=== PATIENT | female | born 1950 | race Two or more races ===

== ENCOUNTER → 2017-11-11 | Emergency (ER) | payer OTHER ==
[~2017-11-11] VITALS: Ht 154.9 cm; Wt 88.9 kg
[~2017-11-11] MED LIST: SYNTHROID50 MCG PO
== END | disposition home or self-care (01) ==
LOC: ER 20:24
DX: H10.89 Other conjunctivitis (principal)

== ENCOUNTER 2018-10-15 10:55 | Outpatient (CLI) | payer OTHER | END 2018-10-15 11:01 | disposition home or self-care (01) | LOC: MAMO-SONO 10:55 | DX: Z12.31 Encounter for screening mammogram for malignant neoplasm of breast (principal); Z87.898 Personal history of other specified conditions; N64.89 Other specified disorders of breast ==

== ENCOUNTER 2018-12-24 13:54 | Outpatient (CLI) | payer OTHER | END 2018-12-24 13:56 | disposition home or self-care (01) | LOC: RAD 13:54 | DX: J45.998 Other asthma (principal) ==

== ENCOUNTER 2019-02-08 07:52 | Outpatient (CLI) | payer OTHER | END 2019-02-08 07:53 | disposition home or self-care (01) | LOC: NUCLEAR 07:52 | DX: I11.9 Hypertensive heart disease without heart failure (principal); I25.10 Atherosclerotic heart disease of native coronary artery without angina pectoris; I82.493 Acute embolism and thrombosis of other specified deep vein of lower extremity, bilateral | CPT/HCPCS: 78452; 93017; 93970; A9500; J0153 ==

== ENCOUNTER → 2020-01-08 | Outpatient (CLI) | payer OTHER | END | disposition home or self-care (01) | LOC: MAMO-SONO 14:26 | PROVIDERS: ATTEND Obstetrics & Gynecology | DX: Z12.31 Encounter for screening mammogram for malignant neoplasm of breast (principal) ==

== ENCOUNTER 2020-03-23 13:13 | Outpatient (CLI) | payer OTHER | END 2020-03-23 13:30 | disposition home or self-care (01) | LOC: NUCLEAR 13:13 | PROVIDERS: ATTEND Obstetrics & Gynecology | DX: M81.8 Other osteoporosis without current pathological fracture (principal); E55.9 Vitamin D deficiency, unspecified ==

== ENCOUNTER 2021-02-18 10:37 | Outpatient (CLI) | payer OTHER | END 2021-02-18 10:38 | disposition home or self-care (01) | LOC: NUCLEAR 10:37 | PROVIDERS: ATTEND Specialist | DX: I87.2 Venous insufficiency (chronic) (peripheral) (principal) ==

== ENCOUNTER 2021-03-31 09:02 | Outpatient (CLI) | payer OTHER | END 2021-03-31 09:08 | disposition home or self-care (01) | LOC: TOM 09:02 | PROVIDERS: ATTEND Internal Medicine Gastroenterology | DX: K76.0 Fatty (change of) liver, not elsewhere classified (principal); R10.10 Upper abdominal pain, unspecified | CPT/HCPCS: 74177; Q9965 ==

== ENCOUNTER 2021-04-14 08:00 | Outpatient (CLI) | payer OTHER | END 2021-04-14 08:30 | disposition home or self-care (01) | LOC: PPH VACUNA 08:00 | PROVIDERS: ATTEND Emergency Medicine Pediatric Emergency Medicine | DX: Z23 Encounter for immunization (principal) ==

== ENCOUNTER 2021-09-29 09:40 | Outpatient (CLI) | payer OTHER | END 2021-09-29 09:53 | disposition home or self-care (01) | LOC: MAMO-SONO 09:40 | PROVIDERS: ATTEND Specialist | DX: Z12.31 Encounter for screening mammogram for malignant neoplasm of breast (principal); E03.9 Hypothyroidism, unspecified; Z13.9 Encounter for screening, unspecified ==

== ENCOUNTER 2021-11-09 08:00 | Outpatient (CLI) | payer OTHER | END 2021-11-09 08:30 | disposition home or self-care (01) | LOC: PPH VACUNA 08:00 | PROVIDERS: ATTEND Emergency Medicine Pediatric Emergency Medicine | DX: Z23 Encounter for immunization (principal) ==

== ENCOUNTER 2021-11-30 07:50 | Outpatient (CLI) | payer OTHER | END 2021-11-30 08:06 | disposition home or self-care (01) | LOC: NUCLEAR 07:50 | PROVIDERS: ATTEND Internal Medicine Cardiovascular Disease | DX: R07.89 Other chest pain (principal) | CPT/HCPCS: 78452; 93017; A9500 ==

== ENCOUNTER 2022-08-05 12:14 | Outpatient (CLI) | payer OTHER | END 2022-08-05 12:30 | disposition home or self-care (01) | LOC: RAD 12:14 | PROVIDERS: ATTEND Specialist | DX: J45.991 Cough variant asthma (principal) ==

== ENCOUNTER 2022-08-10 13:38 | Outpatient (CLI) | payer OTHER | END 2022-08-10 13:40 | disposition home or self-care (01) | LOC: NUCLEAR 13:38 | PROVIDERS: ATTEND Internal Medicine Endocrinology, Diabetes & Metabolism | DX: M81.0 Age-related osteoporosis without current pathological fracture (principal) ==

== ENCOUNTER 2022-09-27 07:05 | Outpatient (CLI) | payer OTHER | END 2022-09-27 07:06 | disposition home or self-care (01) | LOC: NUCLEAR 07:05 | PROVIDERS: ATTEND Specialist | DX: D35.1 Benign neoplasm of parathyroid gland (principal) | CPT/HCPCS: 78072; A9500 ==

== ENCOUNTER 2022-10-13 08:02 | Outpatient (CLI) | payer OTHER | END 2022-10-13 09:00 | disposition home or self-care (01) | LOC: MAMO-SONO 08:02 | PROVIDERS: ATTEND Internal Medicine Endocrinology, Diabetes & Metabolism | DX: Z12.31 Encounter for screening mammogram for malignant neoplasm of breast (principal) ==

== ENCOUNTER 2023-01-04 10:53 | Outpatient (CLI) | payer OTHER | END 2023-01-04 10:57 | disposition home or self-care (01) | LOC: LAB 10:53 | PROVIDERS: ATTEND Radiology Diagnostic Radiology | DX: R10.30 Lower abdominal pain, unspecified (principal) ==

== ENCOUNTER 2023-01-23 07:44 | Outpatient (CLI) | payer OTHER | END 2023-01-23 07:46 | disposition home or self-care (01) | LOC: TOM 07:44 | PROVIDERS: ATTEND Internal Medicine Gastroenterology | DX: R10.10 Upper abdominal pain, unspecified (principal) | CPT/HCPCS: 74178; Q9965 ==

== ENCOUNTER 2023-05-30 12:15 | Outpatient (CLI) | payer OTHER | END 2023-05-30 12:19 | disposition home or self-care (01) | LOC: SONOGRAMA 12:15 | PROVIDERS: ATTEND Specialist | DX: N20.0 Calculus of kidney (principal) ==

== ENCOUNTER 2024-03-14 11:03 | Outpatient (CLI) | payer OTHER | END 2024-03-14 11:04 | disposition home or self-care (01) | LOC: MAMO-SONO 11:03 | PROVIDERS: ATTEND Internal Medicine Endocrinology, Diabetes & Metabolism | DX: N64.0 Fissure and fistula of nipple (principal); Z12.31 Encounter for screening mammogram for malignant neoplasm of breast ==

== ENCOUNTER 2024-08-30 08:51 | Emergency (ER) | payer OTHER ==
[~2024-08-30] VITALS: Ht 154.9 cm; Wt 49.0 kg
== END 2024-08-30 12:30 | disposition home or self-care (01) ==
LOC: ER 08:54
DX: S00.93XA Contusion of unspecified part of head, initial encounter (principal); S20.229A Contusion of unspecified back wall of thorax, initial encounter; W07.XXXA Fall from chair, initial encounter; Y93.89 Activity, other specified; Y92.018 Other place in single-family (private) house as the place of occurrence of the external cause; Y99.9 Unspecified external cause status; M51.369 Other intervertebral disc degeneration, lumbar region without mention of lumbar back pain or lower extremity pain

== ENCOUNTER → 2025-06-30 | Emergency (ER) | payer OTHER ==
[~2025-06-30] VITALS: Ht 154.9 cm; Wt 61.2 kg
[~2025-06-30] MED LIST changes: +BENZONATATE 200 MG CAPSULE PO ONE; +BENZONATATE200 M1 PO; +IPRATROPIU0.2 MG/1 M IH; +IPRATROPIUM BROMIDE 0.5 MG/2.5 ML AMPUL.NEB IH ONE; +LEVALBUTEROL HCL 1.25 MG/3 ML SOLUTION IH ONE; +XOPENEX CO1.25 MG/0. IH
[2025-06-30 20:07] LABS: BASO % 0.7 % (0.1-1.2); EOS # 0.38 (0.04-0.54); EOS % 3.8 % (0.7-7.0); LYMPH # 2.82 (1.18-3.74); LYMPH % 28.4 % (19.3-53.1); MEAN PLATELET VOLUME 9.70 fl (9.4-12.4); MONO # 0.79 (0.24-0.82); MONO % 7.9 % (4.7-12.5); NEUT # 5.85 (1.56-6.13); NEUT % 58.9 % (34.0-71.1); RED CELL DISTRIBUTION WIDTH 12.5 % (11.6-14.4)
[2025-06-30 20:23] LABS: COVID-19 AG NEGATIVE (NEGATIVE)
== END | disposition home or self-care (01) ==
LOC: ER 16:28
PROVIDERS: General Practice
DX: R05.8 Other specified cough (principal)